=== PATIENT | female | born 2005 ===

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

== ENCOUNTER 2025-03-14 14:45 | Outpatient (AMB) | payer OTHER, SELFPAY ==
--- NOTE | 2025-03-14 15:15 | AM.OFFWIN_ITS ---
Intake Vital Signs 03/14/25 15:23 Weight 141 lb BP 110/70 Blood Pressure Location Rt brachial Position Sitting Pulse 100 Pulse Source Pulse Oximeter Pulse Oximetry (%) 97 Oxygen Delivery Method Room Air Intake Visit Reasons: EP Backpain, headache, loose stool, aches, fever Intake Note: Patient here for back pain, headache that comes from back pain, loose stools and fevers that started yesterday. pt mentioned she has scoliosis and when last checked was at 15%. Patient Tobacco Use Status: Never used Tobacco Allergies No Known Allergies Allergy (Verified 03/14/25 15:25) Do you need a note to return to daycare/school/sports/work: Yes HPI HPI Comments History of Present Illness Details History - The patient is a 20 year old female pr esenting with viral illness symptoms whi ch began the prior evening with headache and initial back discomfort. - By morning, accompanying symptoms incl uded body aches, soft stools, chills progressing to warmth sensations after taking Tylenol. - Although shortness of breath was repor sarahi, there was no significant cough or nasal congestion. - Recent exposure to pneumonia through f amilial contact was noted; however, the patient?s presentation is less severe. - The patient has a scoliosis history wi th an estimated 15% spinal curvature and experiences exacerbated symptoms when moving excessively. - Seasonal allergies are well-managed wi th loratadine. Physical Exam General: Cooperative, healthy appearing, comfortable and no acute distress Orientation/consciousness: Patient oriented x3 Limitations: No limitations Head: Normal to inspection Ears: Hearing grossly normal bilaterally, external ears normal and TM's with erythema but no infection Nose: Normal external nose present, Normal nares present and No nasal discharge present Face and sinus: Normal facial exam and Yes sinuses nontender Mouth: Normal oral and palatal mucosa present and moist mucous membranes Throat: Yes tonsils normal, Yes uvula midline. Posterior oropharynx erythema, no exudates noted. Eyes: Appearance normal, both eyes and all related structures Neck: Normal visual inspection, full ROM Respiratory: Clear to auscultation bilaterally. Normal respiratory effort, able to speak in complete sentences, no respiratory distress, not tachypneic, no tripod positioning and no use of accessory muscles Cardiovascular: Regular rate and rhythm. Normal S1 and S2, heart rate elevated at 104 Skin: No rashes or lesions noted Neuro: Patient oriented x3 Extremities: Normal to inspection and Yes no clubbing, cyanosis or edema PFSH Social History Patient Tobacco Use Status: Never used Tobacco Review of Systems Const All systems reviewed & are unremarkable except as noted in HPI and below Physical Exam Vital Signs: Last Vital Signs Pulse 103 H 03/14/25 15:23 BP 110/70 03/14/25 15:23 Pulse Ox 97 03/14/25 15:23 Oxygen Delivery Method Room Air 03/14/25 15:23 Assessment & Plan Assessment & Plan (1) URI, acute: Code(s): J06.9 - Acute upper respiratory infection, unspecified Plan: VSS, pt well appearing and PE unremarkable. I have sent a full viral panel. Should these return negative, a Z-Jaime has been dispensed to address any bacterial element possibly arising from recent pneumonia in the patient's environment. Patient was educated to only pickling tank operator the Z-Jaime if the viral panel is negative. She was advised we will call her tomorrow with test results. Management will lean towards symptomatic relief including hydration, rest, and continued use of Tylenol for pain and fever management, pending further results. 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 The patient will receive follow-up communication regarding test results. Any worsening of symptoms or shortness of breath develops, she should go to the emergency department for further workup. Patient was informed and verbally consented to the use of an ambient scribe for clinic note documentation during this visit Orders: Orders Resp Pathogen Panel - [facility] Today J06.9 - Acute upper respiratory infection, unspecified Medications: New azithromycin For 250 mg dose pack: take 500 mg today (day 1), then 250 mg for 4 days (days 2-5) PO 6 tabs 0RF Coding Level of Care Code New Pt Level 3 (43850) Diagnoses URI, acute J06.9
[2025-03-14 15:23] VITALS: BP 110/70; PULSE 100; O2SAT 97
--- OUTSIDE RECORDS SUMMARY | 2025-03-14 15:29 | XMS_ITS | Clinical Summary ---
Author Organization [address] Address [address] [place] [phone] Phone Care Team Providers Care Microbiology Lab Analyst Name Role Phone Patti Contreras MD Primary Care Provider [phone] Allergies Active Allergy Reactions Criticality Noted Date Comments Tomato Diarrhea,Nausea And Vomiting 019 Medications scopolamine (TRANSDERM-SCOP ) 1 mg over 3 days patch 3 day 1 Patch by Subdermal route every [address] 1 PATCH ON THE SKIN EVERY 3 DAYS 4 Active ondansetron (ZOFRAN) 4 mg tablet Take 1 tablet (4 mg total) by mouth every 8 (eight) hours if needed for nausea (for up to 7 days). 4 Active senna (SENOKOT) 8.6 mg tablet Take 1 tablet (8.6 mg total) by mouth 1 (one) time each day. 3 Active polyethylene glycol (Miralax) 17 gram packet Take 17 g by mouth 1 (one) time each day. 3 Active fluticasone propionate (FLONASE) 50 mcg/actuation nasal spray Administer 1 spray into each nostril 1 (one) time each day. For 30 days 3 Active hydrOXYzine HCL (ATARAX) 25 mg tablet Take 0.5 tablets (12.5 mg total) by mouth every 6 (six) hours if needed for anxiety (for up to 360 days). 1 Active lactase (LACTAID) 3,000 unit tablet Take 1 tablet (3,000 Units total) by mouth 3 (three) times a day with meals. 1 Active Bifidobacterium infantis (Align, B.infantis,) 4 mg capsule Take 1 capsule by mouth 1 (one) time each day. 30 capsule 2 5 Active Allergy Relief, loratadine, 10 mg tablet TAKE ONE TABLET BY MOUTH EVERY DAY 90 tablet 3 5 Active Active Problems Problem Noted Date Diagnosed Date Abdominal pain 05/08/2019 Overview (11/05/2024): 03/2019 - Dr Gray GI - negative celiac screen, upper GI normal, ESR4, LFTS wnl, hpylori negative, familial mediaterranean gene test negative Scoliosis 05/08/2019 Overview (11/05/2024): 12/17/2019 MARITO 15 degrees Right sided thoracic curve f/u in 6 months for scoliosis 05/09/19 15 degree scoliosis, monitor yearly 04/2019 - mild scoliosis on exam, 10degrees, will obtain xray, pt moving to [place], mom wants baseline 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 Overview (11/05/2024): 05/05 - sent to [facility] - given medial sided arch support Encounters Date Type Department Care Team Description 01/22/2025 Telephone Adult Medicine [address] [phone] Patti Contreras MD 01/01/2025 10:00 AM EST Office Visit Adult Medicine [address] [phone] Andres Zee PA Generalized abdominal pain (Primary Dx); Abdominal bloating 01/01/2025 Telephone Gastroenterology - [address] [place] [address] Kishore Dhaliwal MD Record Request 12/30/2024 Telephone Adult Medicine [facility] [address] [place] [phone] Patti Contreras MD Abdominal Pain from Last 3 Months Immunizations Name Administration Dates Next Due DTaP (Infanrix) 6wks to less than 7yo ,07/11/2006,2005,04/30,2005 [id number] (Pentacel) 2mo to less than 5yo 04/10/2006,2005,2005,03/07 HPV 9-valent (Gardisil) 9yo to less than 46yo 11/06/2018,05/03/2018 Hepatitis A Pediatric (Havri x; Vaqta) 12mo to less than 19yo 06/29/2012,08/01/2011 Hepatitis B Pediatric (Enger ix B; Recombivax HB) to less than 20 yo 01/28/2010,2005,2005 IPV Inactivated polio (Ipol) 6wks and older 04/06/2009,07/11/2006,2005,03/07 Influenza trivalent, 0.5mL, preservative free (Fluarix; FluLaval; Fluzone) ages 6mo and older (Afluria) 3 years and older 08/09/2013,07/26/2011 MMR, measles mumps and rubel la Live (Priorix; M-M-R II) 12mo and older 04/06/2009,04/10/2006 Meningococcal MCV4P 05/17/2021,03/11/2016 Pfizer SARS-CoV-2 COVID-19, mRNA, LNP-S, preservative free 05/30/2021,05/09/2021 Pneumococcal Conjugate Vacci ne, 7 Valent 01/11/2006,2005,2005,03/07 Tdap Tetanus diptheria acell ular pertussis (Boostrix; Adacel) 7yo and older 03/11/2016 Varicella live (Varivax) 12m o and older 11/06/2008,01/11/2006 Surgical History Surgery Date Site/Laterality Comments OTHER SURGICAL HISTORY PROCEDURE: DENIES PREVIOUS SURGERY Medical History Medical History Date Comments Cerebral brain hemorrhage ([place] V24, [facility] V28) 05 DX:Cerebral brain hemorrhage (HCC); COMMENT: hospitalized at for a month, on medication for 3 months Seizure ([facility] V24, [facility] V28) 05 DX:Seizure (HCC); COMMENT: at , minor seizure still at 6 months, nothing after Anemia 03/28 DX:Anemia Otitis 01/27 DX:Otitis Constipation DX:Constipation; COMMENT: seen by Ravinder Weir Family History Medical History Relation Name Comments Diabetes Father Allergies Mother Asthma Mother brother STACIA disease Mother reflux meds Stroke Paternal Grandfather Relation Name Status Comments Father Mother Paternal Grandfather Social History Tobacco Use Types Packs/Day Years Used Date Smoking Tobacco: Never Smokeless Tobacco: Never Tobacco Cessation:Counseling Given: Not Answered Alcohol Use Standard Drinks/Week Comments Never 0 (1 standard drink = 0.6 oz pur e alcohol) Comments Unknown Sex and Gender Information Value Date Recorded Sex Assigned at Not on file Legal Sex Female 10:21 AM EST Gender Identity Not on file Sexual Orientation Not on file Obstetrics History Last Filed Vital Signs Vital Sign Reading Time Taken Comments Blood Pressure 92/60 01/01/2025 10:11 AM EST Pulse 88 01/01/2025 10:11 AM EST Temperature 37 ??C (98.6 ??F) 01/01/2025 10:11 AM EST Respiratory Rate 12 01/01/2025 10:11 AM EST Oxygen Saturation - - Inhaled Oxygen Concentration - - Weight 63 kg (138 lb 12.8 oz) 01/01/2025 10:11 A M EST Height 155.6 cm (5' 1.25 ) 01/01/2025 10:11 AM Samantha BOYER Body Mass Index 26.01 01/01/2025 10:11 AM EST Plan of Treatment Upcoming Encounters Date Type Department Care Team (Late st Contact Info) Description 06/04/2025 2:30 PM EDT Office Visit Adult Medicine [facility] [address] [place] [phone] Patti Contreras MD [address] [place] [phone] Health Maintenance Due Date Last Done Comments Meningococcal B Vaccine (1 of 2 - Standard) 2021 HIV Screening 10/29/2022 Hepatitis C Screening 10/29/2022 Social Influencers of Health Screening 10/29/2022 Gonorrhea/Chlamydia Screening 03/06/2024 03/06/2023 COVID-19 Vaccine ( season) 2024 03/27/2022, 05/30/2021, 05/09/2021 Annual Well Child Visit (3-21 years old) 03/20/2025 03/20/2024, 03/06/2023, 05/17/2021, Additional history exists Depression Screening 03/20/2025 03/20/2024 Influenza Vaccine (Season Ended) 2025 10/29/2023, 08/09/2013, 07/26/2011 DTaP,Tdap,and Td Vaccines (7 - Td or Tdap) 03/11/2026 03/11/2016, 04/06/2009, 07/11/2006, Additional history exists Cholesterol Screening (Lipid Panel) 03/20/2029 03/20/2024 Pneumococcal Vaccine: Pediatrics (0 to 5 Years) and At-Risk Patients (6 to 64 Years) Completed 01/11/2006, 2005, 2005, Additional history exists HIB Vaccines Completed 04/10/2006, 03/21, 2005, Additional history exists Varicella Vaccines Completed 11/06/2008, 01/11/2006 IPV Vaccines Completed 04/06/2009, 06/21, 04/10/2006, Additional history exists MMR Vaccines Completed 04/06/2009, 04/10/2006 Hepatitis B Vaccines Completed 01/28/2010, 2005, 2005 Hepatitis A Vaccines Completed 06/29/2012, 08/01/20 11 HPV Vaccines Completed 11/06/2018, 05/03/2018 Meningococcal ACWY Vaccine Completed 05/17/2021, RSV Immunization Patients Under 20 months Aged Out No longer eligible based on patient's age to complete this topic Procedures Procedure Name Priority Date/Time Associated Diagnosis Comments DEPRESSION SCREENING Routine 03/20/2024 GONORRHEA/CHLAMYDIA SCRREENING Routine 03/06/2023 from Last 3 Months or Most Recently Relevant to Health Maintenance Results * Depression Screening (03/20/2024) Depression Screening abstracted Historical Provider HEALTH MAINTENANCE Final Result * Gonorrhea/Chlamydia Screening (03/06/2023) Gonorrhea/Chla mydia Screening abstracted Historical Provider MD HEALTH MAINTENANCE Final Result from Last 3 Months or Most Recently Relevant to Health Maintenance Insurance [facility] Care Teams Microbiology Lab Analyst Relationship Specialty Start Date End Date Patti Contreras MD [address] [place] [address] PCP - General Internal Medicine 01/01/25
== END 2025-03-14 15:41 | disposition home or self-care (01) ==
PROVIDERS: Visit Provider Physician Assistant
DX: J06.9 Acute upper respiratory infection, unspecified (principal)

== ENCOUNTER 2025-03-14 14:45 | Outpatient (REF) | payer OTHER, SELFPAY ==
--- OUTSIDE RECORDS SUMMARY | 2025-03-14 16:00 | XMS_ITS | Encounter Summary ---
Author Organization [facility] Address [address] [place] [address] Care Team Providers Care Jewel Hole Gauger Name Role Phone Yudy Briones MD Primary Care Provider Unavailmalcom e Rosy Castillo DO Primary Care Provider Unav ailable Aminata Rogers MD Primary Care Provider [phone] Patti Contreras MD Primary Care Provider [phone] Encounter Details Date Type Department Care Team Description 02/20/2012 Respiratory Care Technician Report Medical Records [address] [place] [address] Roxanne Castellon Social History Tobacco Use Types Packs/Day Years Used Date Smoking Tobacco: Never Smokeless Tobacco: Never Comments:dad smokes Alcohol Use Standard Drinks/Week Comments Not Asked 0 (1 standard drink = 0.6 oz pur e alcohol) Sex Assigned at Date Recorded Not on file Job Start Date Occupation Industry Not on file Not on file Not on file documented as of this encounter Plan of Treatment Not on file documented as of this encounter Visit Diagnoses Not on filedocumented in this encounter Care Teams Jewel Hole Gauger Relationship Specialty Start Date End Date Yudy Briones MD PCP - General 12/10/09 05/02/18 Rosy Castillo DO PCP - General Pediatrics 05/03/18 03/14/22 Aminata Rogers MD [address] [place] [address] PCP - General Pediatrics 03/15/22 03/05/23 Patti Contreras MD [address] [place] [address] PCP - General Internal Medicine 03/06/23 documented as of this encounter
--- OUTSIDE RECORDS SUMMARY | 2025-03-14 16:00 | XMS_ITS | Encounter Summary ---
Author Organization [facility] Address [address] [place] [address] Care Team Providers Care Hotel Services Sales Representative Name Role Phone Rosy Castillo DO Primary Care Provider Unav ailable Aminata Rogers MD Primary Care Provider [phone] Patti Contreras MD Primary Care Provider [phone] Encounter Details Date Type Department Care Team Description 12/17/2019 Infrastructure Architect Report Medical Records [address] [place] [address], [facility] Social History Tobacco Use Types Packs/Day Years Used Date Smoking Tobacco: Passive Smo ke Exposure - Never Smoker Smokeless Tobacco: Never Comments:Dad smokes outside Alcohol Use Standard Drinks/Week Comments Not Asked [...] on filedocumented in this encounter Care Teams Hotel Services Sales Representative Relationship Specialty Start Date End Date Rosy Castillo DO PCP - General Pediatrics 05/03/18 03/14/22 Aminata Rogers MD [address] [place] [address] PCP - General Pediatrics 03/15/22 03/05/23 Patti Contreras MD [address] [place] [address] PCP - General Internal Medicine 03/06/23 documented as of this encounter
--- OUTSIDE RECORDS SUMMARY | 2025-03-14 16:00 | XMS_ITS | Encounter Summary ---
Author Organization [facility] Address [address] [place] [address] Care Team Providers Care Search Optimization Analyst Name Role Phone Aminata Rogers MD Primary Care Provider [phone] Patti Contreras MD Primary Care Provider [phone] Reason for Visit * Reason Comments E-prescribe Rx Request Encounter Details Date Type Department Care Team Description 03/29/2022 Refill Pediatrics - [address] [address] Aminata Machado PA-C [address] [place] [place], [place] [id number] E-prescribe Rx Request Social History Tobacco Use Types Packs/Day Years Used Date Smoking Tobacco: Passive Smo ke Exposure - Never Smoker Smokeless Tobacco: Never Comments:Dad smokes outside Alcohol Use Standard Drinks/Week Comments Not Asked 0 (1 standard drink = 0.6 oz pur e alcohol) Sex Assigned at Date Recorded Not on file Job Start Date Occupation Industry Not on file Not on file Not on file COVID-19 Exposure Response Date Recorded In the last 10 days, have yo u been in contact with someone who was confirmed or suspected to have Coronavirus/COVID-19? No / Unsure 03/15/2022 1:50 PM EDT documented as of this encounter Miscellaneous Notes * Telephone Encounter - Linda Lujan - 03/29/2022 2:20 PM EDT When was patients last PE/WCC? 05/17/2021 When is patients next PE/WCC scheduled? 07/2022 as [place] going [place] two [place] Aminata Rogers RX REQUEST WHEN MED IS ON THE LIST: All of the medications requested were on the CURRENT MEDS list Did you check the Pharmacy information above?: YES Indicate how soon the patient needs the script: AURELIO Patient would like script to be: E-PRESCRIBED/FAXED TO PHARMACY Is the doctor here today?: NO Can the message wait until the doctor returns?: NO Has the patient been told that the prescription will not be filled until the end of the day? NO Aminata Rogers Payor: [email or web address] / Plan: [employer] / Product Type: MEDICAID RISK documented in this encounter Plan of Treatment Not on file documented as of this encounter Visit Diagnoses Not on filedocumented in this encounter Care Teams Search Optimization Analyst Relationship Specialty Start Date End Date Aminata Rogers MD [address] [place] [address] PCP - General Pediatrics 03/15/22 03/05/23 Patti Contreras MD [address] [place] [address] PCP - General Internal Medicine 03/06/23 documented as of this encounter
--- OUTSIDE RECORDS SUMMARY | 2025-03-14 16:00 | XMS_ITS | Encounter Summary ---
Author Organization [facility] Address [address] [place] [address] Care Team Providers Care Installment Dealer Name Role Phone Rosy Castillo DO Primary Care Provider Unav Aminata Vasquez MD Primary Care Provider [phone] Patti Contreras MD Primary Care Provider [phone] Reason for Visit * Reason Comments E-prescribe Rx Request Encounter Details Date Type Department Care Team Description 11/22/2021 Refill Pediatrics - [place] [address] [place] [address] Tanika Bhakta, [facility] [address] [place] [address] E-prescribe Rx Request Social History Tobacco Use [...] on filedocumented in this encounter Care Teams Installment Dealer Relationship Specialty Start Date End Date Rosy Castillo DO PCP - General Pediatrics 05/03/18 03/14/22 Aminata Rogers MD [address] [place] [address] PCP - General Pediatrics 03/15/22 03/05/23 Patti Contreras MD [address] [place] [phone] PCP - General Internal Medicine 03/06/23 documented as of this encounter
--- OUTSIDE RECORDS SUMMARY | 2025-03-14 16:00 | XMS_ITS | Encounter Summary ---
Author Organization [facility] Address [address] [place] [address] Care Team Providers Care Labor Relations Teacher Name Role Phone Rosy Castillo DO Primary Care Provider Unav ailable Aminata Rogers MD Primary Care Provider [phone] Patti Contreras MD Primary Care Provider [phone] Reason for Visit * Reason Onset Date Comments Medication 06/19/2020 Encounter Details Date Type Department Care Team Description 06/19/2020 Telephone Pediatrics - [address] [address] Sanchez Arriaga MD Medication Social History Tobacco Use Types Packs/Day Years [...] on file documented as of this encounter Miscellaneous Notes * Telephone Encounter - Sanchez Arriaga MD - 06/20/2020 8:53 AM EDT I was contacted by [facility] about Sola The family states they need to make an emergent plane trip and need a refill of scopolamine patch for Sola as she become ill with travel I approved refill of the patch as per prior orders documented in this encounter Plan of Treatment Not on file documented as of this encounter Visit Diagnoses Not on filedocumented in this encounter Care Teams Labor Relations Teacher Relationship Specialty Start Date End Date Rosy Castillo DO PCP - General Pediatrics 05/03/18 03/14/22 Aminata Rogers MD [address] [place] [address] PCP - General Pediatrics 03/15/22 03/05/23 Patti Contreras MD [address] [place] [address] PCP - General Internal Medicine 03/06/23 documented as of this encounter
--- OUTSIDE RECORDS SUMMARY | 2025-03-14 16:00 | XMS_ITS | Encounter Summary ---
Author Organization [facility] Address [address] [place] [address] Care Team Providers Care Paper Ruler Name Role Phone Yudy Briones MD Primary Care Provider Rosy Morales DO Primary Care Provider Unav ailable Aminata Rogers MD Primary Care Provider [phone] Patti Contreras MD Primary Care Provider [phone] Reason for Visit * Reason Onset Date Comments Fever 04/08/2015 Encounter Details Date Type Department Care Team Description 04/08/2015 Telephone [place] [address] Yudy Briones MD Fever Social History Tobacco Use Types Packs/Day Years Used Date Smoking Tobacco: Never Smokeless Tobacco: Never Comments:dad smokes outside Alcohol Use Standard Drinks/Week Comments Not Asked 0 (1 standard drink = 0.6 oz pur e alcohol) Sex Assigned at Date Recorded Not on file Job Start Date Occupation Industry Not on file Not on file Not on file documented as of this encounter Miscellaneous Notes * Telephone Encounter - Eri Vincent L.P.N. - 04/08/2015 2:23 PM EDT FYI, child will be in tomorrow. Concern is bumps on vagina, Mom states they are not blisters or irritated, not red or itchy. Mom just noticed them today. * Telephone Encounter - Eri Vincent L.P.N. - 04/08/2015 2:17 PM EDT [facility] - Telephone Triage Documentation CHIEF COMPLAINT: Spoke with Mom, states child has fever of 102.1, Mom just picked her up from school. Child also has body aches and stomach ache, no nausea, vomiting, or diarrhea. No c/o pain while urinating. Abdominal pain is not severe. Mom also states child has small bumps on vagina, not red, irritated, or itchy. Drinking, voiding. Mom will continue to give Tylenol for fever as needed. Mom aware of night traige nurse. PCP: Yudy Briones LMP/EDC: No current outpatient prescriptions on file. No current facility-administered medications for this visit. Allergies: Review of patient's allergies indicates no known allergies. Patient Active Problem List Diagnosis Code ??? NO ACTIVE MEDICAL PROBLEMS [id number] DISPOSITION:Appointment given REFERENCE:Pediatric's Telephone Protocols by Wilver/Mary CALLER UNDERSTANDS & AGREES WITH ADVICE:YES * Telephone Encounter - Ericka Butt - 04/08/2015 1:42 PM EDT Mom picked up patient from school and is calling back * Telephone Encounter - Ericka Butt - 04/08/2015 12:58 PM EDT Signs/Symptoms: Mom states school nurse called stating patient has a fever. Mom states shes had a fever on and off for a few days I asked Mom to call when she is with patient Duration of symptoms: Few days Temperature: 101.5 Allergies: Review of patient's allergies indicates no known allergies. Any chronic illnesses: Patient Active Problem List Diagnosis Code ??? NO ACTIVE MEDICAL PROBLEMS [id number] Is the child taking any medications: No current outpatient prescriptions on file. No current facility-administered medications for this visit. documented in this encounter Plan of Treatment Not on file documented as of this encounter Visit Diagnoses Not on filedocumented in this encounter Care Teams Paper Ruler Relationship Specialty Start Date End Date Yudy Briones MD PCP - General 12/10/09 05/02/18 Rosy Castillo DO PCP - General Pediatrics 05/03/18 03/14/22 Aminata Rogers MD [address] [place] [address] PCP - General Pediatrics 03/15/22 03/05/23 Patti Contreras MD [address] [place] [address] PCP - General Internal Medicine 03/06/23 documented as of this encounter
--- OUTSIDE RECORDS SUMMARY | 2025-03-14 16:01 | XMS_ITS | Encounter Summary ---
Author Organization [facility] Address [address] [place] [address] Care Team Providers Care Renewable Energy Division Manager Name Role Phone Patti Contreras MD Primary Care Provider [phone] Reason for Visit * Reason Onset Date Comments refill request 03/07/2024 Encounter Details Date Type Department Care Team Description 03/07/2024 Refill Adult Medicine [address] [address] Patti Contreras MD [address] [place] [address] refill request Social History Tobacco Use Types Packs/Day Years Used Date Smoking Tobacco: Never Passive Smoke Exposure: Yes Smokeless Tobacco: Never Comments:Dad smokes outside Alcohol Use Standard Drinks/Week Comments Not Asked 0 (1 standard drink = 0.6 oz pur e alcohol) Sex Assigned at Date Recorded Not on file Job Start Date Occupation Industry Not on file Not on file Not on file documented as of this encounter Miscellaneous Notes * Telephone Encounter - Andres Zee PA-C - 03/07/2024 4:52 PM EDT Ok to fill. Pema Garrido * Telephone Encounter - Cyndi Parsons M.A. - 03/07/2024 3:29 PM EDT Lab Results Component Value Date NA 141 04/26/2023 K 5.0 04/26/2023 CO2 28 04/26/2023 CL 107 04/26/2023 BUN 6 04/26/2023 CREAT 0.64 04/26/2023 GLU 95 04/26/2023 CA 9.4 04/26/2023 GFR 131 04/26/2023 ' Pending appt 03/20/24 Last appt 09/15/23 * Telephone Encounter - Ivone Lujan - 03/07/2024 2:46 PM EDT Patient would like script to be: E-PRESCRIBED/FAXED TO PHARMACY WHEN WAS THE PATIENT'S LAST APPOINTMENT IN ADULT MEDICINE? 09/15/23 WHEN WAS THE LAST TIME THE PATIENT SAW THEIR PCP? Never seen PCP Does patient have an upcoming appointment? Yes 03/20/24 (THE MEDICATION REQUESTED IS ON THE MED LIST ABOVE) All of the medications requested were on the CURRENT MEDS list Did you check the Pharmacy information above?: YES Patient wants: 90 -day supply Is this a mail order prescription request ? NO If the refill is from a FAXED refill request what is the RX # listed on the fax? N/A Patients current insurance carrier is: Payor: [facility] FFS / Plan: [facility] / Product Type: MEDICAID RISK documented in this encounter Plan of Treatment Not on file documented as of this encounter Visit Diagnoses Not on filedocumented in this encounter Care Teams Renewable Energy Division Manager Relationship Specialty Start Date End Date Patti Contreras MD [address] [place] [address] PCP - General Internal Medicine 03/06/23 documented as of this encounter
--- OUTSIDE RECORDS SUMMARY | 2025-03-14 16:01 | XMS_ITS | Encounter Summary ---
Author Organization [facility] Address [address] [place] [address] Care Team Providers Care Improvement Auditor Name Role Phone Patti Contreras MD Primary Care Provider [phone] Encounter Details Date Type Department Care Team Description 04/29/2024 Orders Only Medical Records [address] [place] [address] Kishore Dhaliwal MD Social History Tobacco Use Types Packs/Day Years Used Date Smoking Tobacco: Never Passive Smoke Exposure: Yes Smokeless Tobacco: Never Comments:Dad smokes outside Alcohol Use Standard Drinks/Week Comments Never 0 (1 standard drink = 0.6 oz pur e alcohol) Sex Assigned at Date Recorded Not on file Job Start Date Occupation Industry Not on file Not on file Not on file documented as of this encounter Plan of Treatment Not on file documented as of this encounter Procedures Procedure Name Priority Date/Time Associated Diagnosis Comments OUTSIDE PATHOLOGY Routine 04/11/2024 documented in this encounter Results * OUTSIDE PATHOLOGY (04/11/2024) Kishore Dhaliwal MD OUTSIDE LAB documented in this encounter Visit Diagnoses Not on filedocumented in this encounter Care Teams Improvement Auditor Relationship Specialty Start Date End Date Patti Contreras MD [address] [place], [place] [phone] PCP - General Internal Medicine 03/06/23 documented as of this encounter
--- OUTSIDE RECORDS SUMMARY | 2025-03-14 16:01 | XMS_ITS | Encounter Summary ---
Author Organization [facility] Address [address] [place] [address] Care Team Providers Care Traveling Operator Name Role Phone Patti Contreras MD Primary Care Provider [phone] Reason for Visit * Reason Onset Date Comments Faxed Refill 03/22/2023 90 day supply Encounter Details Date Type Department Care Team Description 03/22/2023 Refill [facility] [place] [address] Aminata Rogers MD [address] [place] [address] Faxed Refill (90 day supply ) Social History Tobacco Use Types Packs/Day Years [...] suspected to have Coronavirus/COVID-19? No / Unsure 03/06/2023 8:35 AM EDT documented as of this encounter Miscellaneous Notes * Telephone Encounter - Aminata Rogers MD - 03/22/2023 2:51 PM EDT Still has refills * Telephone Encounter - Megan Bridges - 03/22/2023 1:09 PM EDT When was patients last PE/WCC? 03/06/23 When is patients next PE/WCC scheduled? 03/20/24 Patti Contreras RX REQUEST WHEN MED IS ON THE LIST: All of the medications requested were on the CURRENT MEDS list Did you check the Pharmacy information above?: YES Indicate how soon the patient needs the script: AURELIO Patient would like script to be: E-PRESCRIBED/FAXED TO PHARMACY Is the doctor here today?: YES Can the message wait until the doctor returns?: YES Has the patient been told that the prescription will not be filled until the end of the day? NO Patti Contreras Payor: [facility]FS / Plan: [facility] / Product Type: MEDICAID RISK documented in this encounter Plan of Treatment Not on file documented as of this encounter Visit Diagnoses Not on filedocumented in this encounter Care Teams Traveling Operator Relationship Specialty Start Date End Date Patti Contreras MD [address] [place] [address] PCP - General Internal Medicine 03/06/23 documented as of this encounter
--- OUTSIDE RECORDS SUMMARY | 2025-03-14 16:01 | XMS_ITS | Encounter Summary ---
Author Organization [facility] Address [address] [place] [address] Care Team Providers Care Buyer Internship Name Role Phone Rosy Castillo DO Primary Care Provider Unav ailable Aminata Rogers MD Primary Care Provider [phone] Patti Contreras MD Primary Care Provider [phone] Encounter Details Date Type Department Care Team Description 09/09/[address] [address] Rosy Castillo DO Social History Tobacco Use Types Packs/Day Years [...] Exposure Response Date Recorded In the last month, have you been in contact with someone who was confirmed or suspected to have Coronavirus / COVID-19? No / Unsure 08/25/2021 10:23 AM EDT documented as of this encounter Plan of Treatment Not on file documented as of this encounter Visit Diagnoses Not on filedocumented in this encounter Care Teams Buyer Internship Relationship Specialty Start Date End Date Rosy Castillo DO PCP - General Pediatrics 05/03/18 03/14/22 Aminata Rogers MD [address] [place] [address] [phone] PCP - General Pediatrics 03/15/22 03/05/23 Patti Contreras MD [address] [place] [phone] PCP - General Internal Medicine 03/06/23 documented as of this encounter
--- OUTSIDE RECORDS SUMMARY | 2025-03-14 16:01 | XMS_ITS | Encounter Summary ---
Author Organization [facility] Address [address] [place] [address] Care Team Providers Care Light Industrial Supervisor Name Role Phone Yudy Briones MD Primary Care Provider Unavailabl e Rosy Castillo DO Primary Care Provider Unav ailable Aminata Rogers MD Primary Care Provider [phone] Patti Contreras MD Primary Care Provider [phone] Encounter Details Date Type Department Care Team Description 04/25/2016 Junior Brand Manager Report Medical Records [address] [place] [address] Jose Raul Beaver MD Social History Tobacco Use Types Packs/Day Years Used Date Smoking Tobacco: Never Smokeless Tobacco: Never Alcohol Use Standard Drinks/Week Comments Not Asked [...] on filedocumented in this encounter Care Teams Light Industrial Supervisor Relationship Specialty Start Date End Date Yudy Briones MD PCP - General 12/10/09 05/02/18 Rosy Castillo DO PCP - General Pediatrics 05/03/18 03/14/22 Aminata Rogers MD [address] [place], [place] [phone] PCP - General Pediatrics 03/15/22 03/05/23 Patti Contreras MD [address] [place] [address] PCP - General Internal Medicine 03/06/23 documented as of this encounter
--- OUTSIDE RECORDS SUMMARY | 2025-03-14 16:01 | XMS_ITS | Encounter Summary ---
Author Organization [facility] Address [address] [place] [address] Care Team Providers Care Rn Digestive Name Role Phone Patti Contreras MD Primary Care Provider [phone] Encounter Details Date Type Department Care Team Description 04/20/2023 Release of Information Medical Records [address] [place] [address] Abstract, Provider Social History Tobacco Use Types Packs/Day Years [...] on filedocumented in this encounter Care Teams Rn Digestive Relationship Specialty Start Date End Date Patti Contreras MD [address] [place], [place] [phone] PCP - General Internal Medicine 03/06/23 documented as of this encounter
--- OUTSIDE RECORDS SUMMARY | 2025-03-14 16:01 | XMS_ITS | Encounter Summary ---
Author Organization [facility] Address [address] [place] [address] Care Team Providers Care Edge Trimming Machine Operator Name Role Phone Patti Contreras MD Primary Care Provider [phone] Encounter Details Date Type Department Care Team Description 03/08/2023 Release of Information Medical Records [address] [place] [address] Abstract, Provider Social History Tobacco Use Types [...] Recorded In the last 10 days, have jazlyn blake been in contact with someone who was confirmed or suspected to have Coronavirus/COVID-19? No / Unsure 03/06/2023 8:35 AM EDT documented as of this encounter Plan of Treatment Not on file documented as of this encounter Visit Diagnoses Not on filedocumented in this encounter Care Teams Edge Trimming Machine Operator Relationship Specialty Start Date End Date Patti Contreras MD [address] [place] [address] PCP - General Internal Medicine 03/06/23 documented as of this encounter
--- OUTSIDE RECORDS SUMMARY | 2025-03-14 16:01 | XMS_ITS | Encounter Summary ---
Author Organization [facility] Address [address] [place] [address] Care Team Providers Care Cost Estimating Manager Name Role Phone Aminata Rogers MD Primary Care Provider [phone] Patti Contreras MD Primary Care Provider [phone] Reason for Visit * Reason Comments E-prescribe Rx Request Encounter Details Date Type Department Care Team Description 11/26/2022 Refill Pediatrics - [place] [address] [place] [address] Tanika Bhakta, [facility] [address] [place] [address] E-prescribe Rx Request Social History Tobacco Use [...] Miscellaneous Notes * Telephone Encounter - Linda Shayda - 11/28/2022 9:01 AM EST When was patients last PE/WCC? 04/2021 When is patients next PE/WCC scheduled? 02/2023 Aminata Rogers RX REQUEST WHEN MED IS [...] of the day? NO Aminata Rogers Payor: [facility] [employer] [facility] / Plan: [facility] / Product Type: MEDICAID RISK documented in this encounter Plan of Treatment Not on file documented as of this encounter Visit Diagnoses Not on filedocumented in this encounter Care Teams Cost Estimating Manager Relationship Specialty Start Date End Date Aminata Rogers MD [address] [place] [address] PCP - General Pediatrics 03/15/22 03/05/23 Patti Contreras MD [address] [place] [phone] PCP - General Internal Medicine 03/06/23 documented as of this encounter
--- OUTSIDE RECORDS SUMMARY | 2025-03-14 16:01 | XMS_ITS | Encounter Summary ---
Author Organization [facility] Address [address] [place] [address] Care Team Providers Care Meat Stuffer Name Role Phone Patti Contreras MD Primary Care Provider Encounter Details Date Type Department Care Team Description 04/18/2023 Telephone [facility] - [address] [address] Patti Contreras MD [address] [place] [phone] Social History Tobacco Use Types Packs/Day Years [...] on filedocumented in this encounter Care Teams Meat Stuffer Relationship Specialty Start Date End Date Patti Contreras MD [address] [place] [address] PCP - General Internal Medicine 03/06/23 documented as of this encounter
--- OUTSIDE RECORDS SUMMARY | 2025-03-14 16:01 | XMS_ITS | Clinical Summary ---
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 Overview (11/05/2024): 05/05 - sent to [facility] - given medial sided arch support Encounters Date Type Department Care Team Description 01/22/2025 Telephone Adult Medicine [address] [phone] Patti Contreras MD 01/01/2025 10:00 AM EST Office Visit Adult Medicine [address] [phone] Andres Zee PA Generalized abdominal pain (Primary Dx); Abdominal bloating 01/01/2025 Telephone Gastroenterology - [address] [place] [address] Kishore Dhaliwal MD Record Request 12/30/2024 Telephone Adult Medicine [facility] [address] [place] [phone] Patti Contreras MD Abdominal Pain from Last 3 Months Immunizations Name Administration Dates Next Due DTaP (Infanrix) 6wks to less than 7yo ,07/11/2006,2005,04/30,2005 [id number] (Pentacel) 2mo to less than 5yo 04/10/2006,2005,2005,03/07 [...] History Date Comments Cerebral brain hemorrhage ([facility] V24, [facility] V28) 05 DX:Cerebral brain hemorrhage (HCC); COMMENT: hospitalized at for a month, on medication for 3 months Seizure ([facility] V24, [facility] V28) 05 DX:Seizure (HCC); COMMENT: at , [...] 2:30 PM EDT Office Visit Adult Medicine [facility] [address] [place] [address] Patti Contreras MD [address] [place] [phone] Health Maintenance Due Date Last Done Comments [...] Most Recently Relevant to Health Maintenance Insurance [employer] Care Teams Logistic Manager Relationship Specialty Start Date End Date Patti Contreras MD [address] [place] [address] PCP - General Internal Medicine 01/01/25
--- OUTSIDE RECORDS SUMMARY | 2025-03-14 16:01 | XMS_ITS | Encounter Summary ---
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 You recently referred this patient to see Gastroenterology on 09/15/2023. Patient was scheduled for 12/05/2023 but missed appointment . Unfortunately after several attempts and a letter sent to patient on 01/10/2024, we were unsuccessful in reaching this patient to schedule this appointment. Therefore, we have closed this referral. If the patient happens to reach out to us in the future, I will make sure that you ae informed. Thank you, Otto Referrals coordinator documented in this encounter Plan of Treatment Not on file documented as of this encounter Visit Diagnoses Not on filedocumented in this encounter Care Teams Finishing Machine Operator Relationship Specialty Start Date End Date Patti Contreras MD [address] [place] [phone] PCP - General Internal Medicine 03/06/23 documented as of this encounter
--- OUTSIDE RECORDS SUMMARY | 2025-03-14 16:01 | XMS_ITS | Encounter Summary ---
Author Organization [facility] Address [address] [place] [address] Care Team Providers Care Flatbed Truck Driver Name Role Phone Patti Contreras MD Primary Care Provider [phone] Encounter Details Date Type Department Care Team Description 03/21/2024 Orders Only Adult Medicine [address] [address] Patti Contreras MD [address] [place] [phone] Transaminitis (Primary Dx) Social History Tobacco Use Types Packs/Day Years [...] on file documented as of this encounter Results * ANTI-SMOOTH MUSCLE ANTIBODY (03/21/2024 12:06 PM EDT) ANTI-SMOOTH MUSCLE ANTIBODY 5 <20 UNITS 03/25/2024 3:14 PM EDT [facility] Comment: Interpretation: Negative Test performed at [facility], [address], [place], [place] ??[address] ? [phone] Luisana Doss MD, PhD - Dry Wall Installer 03/21/2024 12:0 6 PM EDT 03/21/2024 12:06 PM EDT Narrative [facility] - 03/25/2024 3:14 PM EDT Release to patient->Immediate Patti Contreras MD LAB Performing Organization Address [facility] Co de Phone Number [facility] * (ABNORMAL) HEPATITIS PANEL (03/21/2024 12:06 PM EDT) Hepatitis B surface antibody POSITIVE(A) NEGATIVE 03/21/2024 3:17 PM EDT [facility] Hepatitis B surface antigen NEGATIVE NEGATIVE 03/21/2024 3:28 PM EDT [facility] [employer] Comment: Over the counter supplements containing high doses of biotin may interfere with this assay. ??If interference is suspected, patients shoud be retested after refraining from biotin supplements for 72 hours. Hepatitis C Virus Diagnostic NEGATIVE NEGATIVE 03/21/2024 3:55 PM EDT [facility] [employer] HEPATITIS B CORE ANTIBODY NEGATIVE NEGATIVE 03/21/2024 3:56 PM EDT [facility] [employer] HEPATITIS A ANTIBODY TOTAL POSITIVE(A) NEGATIVE 03/21/2024 5:41 PM EDT [facility] [employer] Comment: Over the counter supplements containing high doses of biotin may interfere with this assay. ??If interference is suspected, patients shoud be retested after refraining from biotin supplements for 72 hours. 03/21/2024 12:0 6 PM EDT 03/21/2024 12:06 PM EDT Narrative [facility] - 03/21/2024 5:41 PM EDT Release to patient->Immediate Patti Contreras MD LAB Performing Organization Address [facility] Co de Phone Number [facility] [employer] * IRON/TIBC (03/21/2024 12:06 PM EDT) TOTAL IRON BINDING CAPACITY 366 250 - 450 ug/dL 03/21/2024 3:34 PM EDT [facility] IRON (FE) 111 40 - 150 ug/dL 03/21/2024 3:34 PM EDT [facility] % FE SATURATION 30 15 - 50 % 3:34 PM EDT [facility] 03/21/2024 12:0 6 PM EDT 03/21/2024 12:06 PM EDT Narrative [facility] - 03/21/2024 3:34 PM EDT Release to patient->Immediate Patti Contreras MD LAB [facility] * CHG ASSAY OF FERRITIN (03/21/2024 12:06 PM EDT) FERRITIN 63 8 - 252 ng/mL 03/21/2024 3:34 PM EDT [facility] 03/21/2024 12:0 6 PM EDT 03/21/2024 12:06 PM EDT Narrative [facility] - 03/21/2024 3:34 PM EDT Release to patient->Immediate Patti Contreras MD LAB Performing Organization Address City/[facility]/ZIP Co de Phone Number [facility] documented in this encounter Visit Diagnoses Diagnosis Transaminitis- Primary Nonspecific elevation of levels of transaminase or lactic acid dehydrogenase (LDH) Transaminitis Nonspecific elevation of levels of transaminase or lactic acid dehydrogenase (LDH) documented in this encounter Care Teams Flatbed Truck Driver Relationship Specialty Start Date End Date Patti Contreras MD [address] [place] [phone] PCP - General Internal Medicine 03/06/23 documented as of this encounter
[2025-03-15 12:56] LABS: Adenovirus PCR Not Detected (Not Detect.); Bordetella parapertussis PCR Not Detected (Not Detect.); Bordetella pertussis PCR Not Detected (Not Detect.); Chlamydia pneumoniae PCR Not Detected (Not Detect.); Coronavirus 229E PCR Not Detected (Not Detect.); Coronavirus HKU1 PCR Not Detected (Not Detect.); Coronavirus NL63 PCR Not Detected (Not Detect.); Coronavirus OC43 PCR Not Detected (Not Detect.); Human metapneumovirus PCR Not Detected (Not Detect.); Influenza A PCR Not Detected (Not Detect.); Influenza B PCR Not Detected (Not Detect.); Mycoplasma pneumoniae PCR Not Detected (Not Detect.); Parainfluenza 1 PCR Not Detected (Not Detect.); Parainfluenza 2 PCR Not Detected (Not Detect.); Parainfluenza 3 PCR Not Detected (Not Detect.); Parainfluenza 4 PCR Not Detected (Not Detect.); RSV PCR Not Detected (Not Detect.); Rhino/Enterovirus PCR Not Detected (Not Detect.)
[2025-03-15 13:35] LABS: Influenza A H1 PCR Not Detected (Not Detect.); Influenza A H1-2009 PCR Not Detected (Not Detect.); Influenza A H3 PCR Not Detected (Not Detect.); SARS-CoV-2 PCR Not Detected (Not Detect.)
== END 2025-03-14 14:46 | disposition home or self-care (01) ==
LOC: HO.LAB 14:45
PROVIDERS: Visit Provider Physician Assistant
DX: J06.9 Acute upper respiratory infection, unspecified (principal)
CPT/HCPCS: 87633; 99202

== ENCOUNTER 2025-04-24 10:28 | Outpatient (REF) | payer OTHER, SELFPAY ==
[2025-04-24 15:10] LABS: Influenza A PCR NEGATIVE (Negative); Influenza B PCR NEGATIVE (Negative); Resp Syncy Virus RNA Qual PCR NEGATIVE (Negative); SARS COV2 PCR INHOUSE NEGATIVE (Negative)
== END 2025-04-24 10:29 | disposition home or self-care (01) ==
LOC: HO.LNP 10:28
PROVIDERS: Visit Provider Physician Assistant Medical
DX: J02.8 Acute pharyngitis due to other specified organisms (principal); R09.89 Other specified symptoms and signs involving the circulatory and respiratory systems
CPT/HCPCS: 0241U; 87880; 99212

== ENCOUNTER 2025-04-24 10:28 | Outpatient (AMB) | payer OTHER, SELFPAY ==
[2025-04-24 10:39] VITALS: BP 104/60; PULSE 88; TEMP 37; O2SAT 98; BMI 26.6
--- NOTE | 2025-04-24 10:39 | AM.OFFWIN_ITS ---
Intake Vital Signs 04/24/25 10:39 Height 5 ft 1 in Weight 141 lb BMI 26.6 BP 104/60 Blood Pressure Location Lt brachial Position Sitting Pulse 88 Pulse Source Pulse Oximeter Temp 98.6 F Temp Source Oral Pulse Oximetry (%) 98 Oxygen Delivery Method Room Air Intake Visit Reasons: EP fever, sore throat & pain when swelling Intake Note: Pt presents to the office today for c/o fever,sore throat and pain when swallowing since yesterday. Patient Tobacco Use Status: Never used Tobacco Allergies No Known Allergies Allergy (Verified 04/24/25 10:43) HPI HPI Comments History of Present Illness Details History of Present Illness - The patient is a 20-year-old female pr esenting with throat pain since this am. She has pain with swallowing and she has pain in the ears. - Symptoms began yesterday, increasing i n severity, especially upon swallowing, alongside brown sputum production. - The patient has a headache and chills, suspecting a fever without a recorded temperature. - She states that she has seasonal aller gies and takes Zyrtec and Flonase daily. - She denies fever, chills, CP, SOB, abd pain, n/v/d, rashes, or travel. 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 She denies smoking. Physical Exam General: Cooperative, healthy appearing, comfortable, no acute distress and well developed Orientation: Patient oriented x3 Head: Normal to inspection Ears: Hearing grossly normal bilaterally, TMs are normal. Nose: Normal external nose present Face and sinus: Normal facial exam. No sinus tenderness noted. Neck: Normal visual inspection, right lymph node tenderness noted, Yes full ROM Respiratory: Normal respiratory effort and able to speak in complete sentences. Clear to auscultation bilaterally Cardiovascular: Regular rate and rhythm. Normal S1 and S2 GI: Normal to inspection. Soft to palpation and nontender Skin: No rashes or lesions noted Patient was informed and verbally consented to the use of an ambient scribe for clinic note documentation during this visit. [facility] Social History Patient Tobacco Use Status: Never used Tobacco Review of Systems Const All systems reviewed & are unremarkable except as noted in HPI and below Physical Exam Vital Signs: Last Vital Signs Temp 98.6 F 04/24/25 10:39 Pulse 88 04/24/25 10:39 BP 104/60 04/24/25 10:39 Pulse Ox 98 04/24/25 10:39 Oxygen Delivery Method Room Air 04/24/25 10:39 BMI result Body Mass Index 26.6 Results AMB Rapid Strep AMB Rapid Strep Negative Last Edit by Yudy Park CMA on 04/24/25 10:51 Results Reviewed Results Reviewed: Laboratory Last Values Strep Scn Rapid Clinic Negative 04/24/25 10:44 Assessment & Plan Assessment & Plan (1) Sore throat (viral): Code(s): J02.8 - Acute pharyngitis due to other specified organisms; B97.89 - Other viral agents as the cause of diseases classified elsewhere Plan Most likely strep vs URI vs covid vs flu vs pharyngitis Rapid strep is negative Plan - Perform COVID-19 test to check for viral infections. - Continue Zyrtec and Flonase for allergy management. - Use salt water gargles and lozenges for throat relief. - Recommend acetaminophen or ibuprofen for pain management. - Patient was given a work note for the day. - Advise monitoring of symptoms and reporting any worsening. Orders: Orders AMB Rapid Strep Screen Today Z13.9 - Encounter for screening, unspecified SARS-CoV2/FLU/RSV Today R09.89 - Other specified symptoms and signs involving the circulatory and respiratory systems Coding Level of Care Code New Pt Level 3 (12130) Diagnoses Sore throat (viral) J02.8; B97.89
--- OUTSIDE RECORDS SUMMARY | 2025-04-24 12:19 | XMS_ITS | Clinical Summary ---
Author Organization [facility] [address] [place] [address] [address] [place] [address] Phone Care Team Providers Care Stereotyper Helper Name Role Phone Meseret Bauman MD Primary Care Provider Medications scopolamine (TRANSDERM-SCO P) 1 mg over 3 days patch 3 [...] 1 (one) time each day. 3 Active hydrOXYzine HCL (ATARAX) 25 mg tablet Take 0.5 tablets (12.5 mg total) by mouth every 6 (six) hours if needed for anxiety (for up to 360 days). 1 Active lactase (LACTAID) 3,000 unit tablet Take 1 tablet (3,000 Units total) by mouth 3 (three) times a day with meals. 1 Active Bifidobacteriu m infantis (Align, B.infantis,) 4 mg capsule Take 1 capsule by mouth 1 (one) time each day. 30 capsule 2 5 Active Allergy Relief, loratadine, 10 mg tablet TAKE ONE TABLET BY MOUTH EVERY DAY 90 tablet 3 5 Active fluticasone propionate (FLONASE) 50 mcg/actuation nasal spray Administer 2 sprays into each nostril 1 (one) time each day. Shake gently. Before first use, prime pump. After use, clean tip and replace cap. 16 g 5 5 04/01/20 26 Active cetirizine (ZyrTEC) 10 mg tablet Take 1 tablet (10 mg total) by mouth 1 (one) time each day. 90 each 1 5 09/28/20 25 Active albuterol HFA (Proventil HFA) 90 mcg/actuation inhalerIndicat ions:Post-nani l cough syndrome Inhale 2 puffs by mouth every 4 (four) hours if needed for wheezing or shortness of breath. 6.7 g 1 5 04/01/20 26 Active Culturelle Digestive Health 10 billion cell -200 mg capsule TAKE ONE CAPSULE BY MOUTH EVERY DAY 30 capsule 2 5 Active Culturelle Digestive Health 10 billion cell -200 mg capsule Take 1 capsule by mouth 1 (one) time each day. 5 Active fluticasone propionate (FLONASE) 50 mcg/actuation nasal spray Administer 1 spray into each nostril 1 (one) time each day. 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 Overview (11/05/2024): 05/05 - sent to [facility] - given medial sided arch support Encounters Date Type Department Care Team Description 04/02/2025 Telephone Adult Medicine [address] [phone] Patti Contreras MD Fitting for DME 04/01/2025 9:30 AM EDT - 04/01/2025 11:59 PM EDT Hospital Encounter XRAY - [facility] [address] [place] [address] Post-viral cough syndrome Discharge Disposition: Home or Self Care 04/01/2025 8:45 AM EDT Office Visit Adult Medicine [address] [phone] Patti Contreras MD Post-viral cough syndrome (Primary Dx); Varicose veins of both lower extremities with pain 01/22/2025 Telephone Adult Medicine [address] [phone] Patti Contreras MD from Last 3 Months Immunizations Name Administration Dates Next Due DTaP (Infanrix) 6wks to less than 7yo ,07/11/2006,2005,04/30,2005 [id number] (Pentacel) 2mo to less than 5yo 04/10/2006,2005,2005,03/07 [...] 12mo and older 04/06/2009,04/10/2006 Meningococcal MCV4P 05/17/2021,03/11/2016 [employer] SARS-CoV-2 COVID-19, mRNA, LNP-S, preservative free 05/30/2021,05/09/2021 Pneumococcal Conjugate Vacci ne, 7 Valent 01/11/2006,2005,2005,03/07 Tdap Tetanus diptheria acell ular pertussis (Boostrix; Adacel) 7yo and older 03/11/2016 Varicella live (Varivax) 12m o and older 11/06/2008,01/11/2006 Surgical History Surgery Date Site/Laterality Comments OTHER SURGICAL HISTORY PROCEDURE: DENIES PREVIOUS SURGERY Medical History Medical History Date Comments Cerebral brain hemorrhage ([facility]/H[facility] V24, CMS/HCC V28) 05 DX:Cerebral brain hemorrhage (HCC); COMMENT: hospitalized at for a month, on medication for 3 months Seizure (CMS/HCC V24, CMS/HCC V28) 05 DX:Seizure (HCC); COMMENT: at , [...] Sex Female 10:21 AM EST Gender Identity Female 03/31/2025 8:58 AM EDT Sexual Orientation Not on file Obstetrics History Last Filed Vital Signs Vital Sign Reading Time Taken Comments Blood Pressure 118/74 04/01/2025 8:45 AM EDT Pulse 76 04/01/2025 8:45 AM EDT Temperature 36.4 ??C (97.5 ??F) 04/01/2025 8:45 AM ED T Respiratory Rate 16 04/01/2025 8:45 AM EDT Oxygen Saturation 98% 04/01/2025 8:45 AM EDT Inhaled Oxygen Concentration - - Weight 63.5 kg (140 lb) 04/01/2025 8:45 AM EDT Height 154.9 cm (5' 1 ) 04/01/2025 8:45 AM EDT Body Mass Index 26.45 04/01/2025 8:45 AM EDT Plan of Treatment Upcoming Encounters Date Type Department Care Team (Late st Contact Info) Description 05/07/2025 7:00 AM EDT Ancillary Procedure [facility] [address] [place] [address] 06/04/2025 2:30 PM EDT Office Visit Adult Medicine [address] [phone] Patti Contreras MD [address] [place] [address] Health Maintenance Due Date Last Done Comments [...] Procedure Name Priority Date/Time Associated Diagnosis Comments XR CHEST 2 VIEWS Routine 04/01/2025 9:46 AM EDT Post-viral cough syndrome DEPRESSION SCREENING Routine 03/20/2024 GONORRHEA/CHLAMYDIA SCRREENING Routine 03/06/2023 from Last 3 Months or Most Recently Relevant to Health Maintenance Results * XR Chest 2 Views (04/01/2025 9:46 AM EDT) Anatomical Region Laterality Modality Body Radiographic Eryn ging 04/01/2025 10:2 8 AM EDT Impressions 04/01/2025 10:31 AM EDT No acute cardiopulmonary abnormality. -------- FINAL REPORT -------- Dictated By: Susan James Dictated Date: 04/01/2025 10:28 ET Assigned Physician: Susan James Reviewed and Electronically Signed By: Susan James Signed Date: 04/01/2025 10:31 ET Workstation ID: [id number] Transcribed By: Self Edit Transcribed Date: 04/01/2025 10:28 ET Narrative 04/01/2025 10:31 AM EDT XR CHEST 2 VIEWS Reason: Cough Comparison: None FINDINGS: Lungs: No focal consolidation. ??No evidence of pulmonary edema. Pleura: No pleural effusion or pneumothorax. Heart/Mediastinum: Cardiomediastinal silhouette is within normal limits. Bones : No acute findings. Procedure Note Susan James MD - 04/01/2025 XR CHEST 2 VIEWS Reason: Cough Comparison: None FINDINGS: Lungs: No focal consolidation. No evidence of pulmonary edema. Pleura: No pleural effusion or pneumothorax. Heart/Mediastinum: Cardiomediastinal silhouette is within normal limits. Bones : No acute findings. IMPRESSION: No acute cardiopulmonary abnormality. -------- FINAL REPORT -------- Dictated By: Susan James Dictated Date: 04/01/2025 10:28 ET Assigned Physician: Susan James Reviewed and Electronically Signed By: Susan James Signed Date: 04/01/2025 10:31 ET Workstation ID: [id number] Transcribed By: Self Edit Transcribed Date: 04/01/2025 10:28 ET Patti Contreras MD IMG XR PROCEDURES Final Result * Depression Screening (03/20/2024) Depression Screening abstracted Historical Provider HEALTH MAINTENANCE Final Result * Gonorrhea/Chlamydia Screening (03/06/2023) Gonorrhea/Chla mydia Screening abstracted Historical Provider HEALTH MAINTENANCE Final Result from Last 3 Months or Most Recently Relevant to Health Maintenance Insurance [facility] Care Teams Stereotyper Helper Relationship Specialty Start Date End Date Meseret Bauman MD [address] [place] [address] PCP - General Internal Medicine 04/03/25
== END 2025-04-24 11:47 | disposition home or self-care (01) ==
PROVIDERS: Visit Provider Physician Assistant Medical
DX: J02.9 Acute pharyngitis, unspecified (principal)